=== PATIENT | female | born 1970 | race African-American/Black ===

== ENCOUNTER → 2019-03-04 | Outpatient (CLI) | payer SELFPAY ==
--- NOTE | 2019-03-04 12:20 | RAD ---
Two-view chest dated 03/04/2019. No comparison available. Clinical data indication: Shortness of breath. FINDINGS: PA and lateral views of the chest were obtained. Heart and mediastinal contours within normal limits. Lungs are clear without focal consolidation. Vascular interstitium within normal limits. No pleural effusion or pneumothorax. IMPRESSION: No acute radiographic abnormality. Electronically signed by: Eriberto Ridley MD (03/04/2019 12:17 PM) [id number]
[2019-03-04 12:27] LABS: BASO # 0.1 x10^3/uL (0.0-0.2); BASO % 1 % (0-3); EOS # 0.5 x10^3/uL (0.0-0.7); EOS % 4 % (0-3); HEMATOCRIT 35.3 % (36.0-47.0); LYMPH # 2.1 x10^3/uL (1.0-4.8); LYMPH % 17 % (24-48); MEAN CORPUSCULAR HEMOGLOBIN 25 pg (25-35); MEAN CORPUSCULAR HGB CONC 31 g/dL (31-37); MEAN CORPUSCULAR VOLUME 81 fL (79-100); MONO # 0.9 x10^3/uL (0.0-1.1); MONO % 7 % (0-9); NEUT # 8.5 x10^3uL (1.8-7.7); NEUT % 71 % (31-73); PLATELET COUNT 290 x10^3/uL (140-400); RED BLOOD COUNT 4.35 x10^6/uL (3.50-5.40); RED CELL DISTRIBUTION WIDTH 15.2 % (11.5-14.5)
== END | disposition home or self-care (01) ==
LOC: RAD 11:42
PROVIDERS: ATTEND Internal Medicine Pulmonary Disease
DX: R06.02 Shortness of breath (principal); J45.909 Unspecified asthma, uncomplicated
CPT/HCPCS: 36415; 71046; 82784; 85025

== ENCOUNTER → 2019-08-24 | Outpatient (CLI) | payer OTHER ==
--- NOTE | 2019-08-25 11:34 | SLEEP ---
DATE OF STUDY: 08/24/2019 REFERRING PHYSICIAN: Miya Johnson MD INDICATIONS: The patient is a 48-year-old, who weighs 235 pounds with a BMI of 42. The patient's [place] score was 15. A split night study was performed at [facility]. FINDINGS: During the night study, the patient spent 432 minutes in bed and slept for 392 minutes with a sleep efficiency of 91%. Sleep latency was 7 minutes with a REM latency of 150. Sleep architecture showed normal stage 1 sleep, increased stage 2 sleep, normal slow wave, and normal REM sleep. During the initial diagnostic portion of the study, the patient slept for 72 minutes. During that time, there were 4 obstructive apneas, no mixed or central apneas, and 26 hypopneas. The patient's apnea hypopnea index was 25 per hour with a supine index of 25 per hour. REM sleep was not seen during the diagnostic portion of the study. EKG monitoring revealed a mean heart rate of 83 beats per minute, no sustained arrhythmias observed. Nocturnal oximetry study revealed a mean oxygen saturation 97%. Only 2.7% of the time, oxygen saturation remained between 80% and 89%. No clinically significant PLMS observed. The patient met the criteria for CPAP initiation. It was started at 5 cm of water and titrated up to 15 cm of water. At the final pressure, the patient slept for 66 minutes. The patient had supine sleep. The patient's apnea hypopnea index was reduced to 0 per hour and oxygen saturations remained above 93%. IMPRESSION: 1. Moderate sleep apnea-hypopnea syndrome at an apnea hypopnea index of 25 per hour. Absence of REM sleep during the diagnostic portion can underestimate the severity of sleep apnea. 2. Nocturnal hypoxia secondary to obstructive sleep apnea but resolved with CPAP. 3. No clinically significant periodic limb movements. RECOMMENDATIONS: 1. CPAP at 15 cm water completely eliminated the patient's sleep apnea and should be used on a nightly basis. Follow up in 4-6 weeks to assess compliance with CPAP and to document clinical improvement. 2. Weight loss is strongly advised. 3. Avoid [employer] depressants. 4. Cautioned regarding driving until symptoms of sleep apnea resolve with the use of CPAP. 5. The patient used medium-sized nasal pillows. ADRIENNE U. CARPIO, MD DR: ELLY/isabelle JOB#: [id number] / [id number] MIYA Lindquist MD MTDD
== END | disposition home or self-care (01) ==
LOC: RT 18:56
PROVIDERS: ATTEND Internal Medicine Pulmonary Disease
DX: G47.33 Obstructive sleep apnea (adult) (pediatric) (principal)
CPT/HCPCS: 95810

== ENCOUNTER → 2020-07-16 | Outpatient (CLI) | payer OTHER ==
[2020-07-16 07:27] LABS: BASO # 0.1 x10^3/uL (0.0-0.2); BASO % 1 % (0-3); EOS # 0.3 x10^3/uL (0.0-0.7); EOS % 5 % (0-3); HEMATOCRIT 33.9 % (36.0-47.0); HEMOGLOBIN 10.8 g/dL (12.0-15.5); LYMPH # 1.8 x10^3/uL (1.0-4.8); LYMPH % 26 % (24-48); MEAN CORPUSCULAR HEMOGLOBIN 25 pg (25-35); MEAN CORPUSCULAR HGB CONC 32 g/dL (31-37); MEAN CORPUSCULAR VOLUME 77 fL (79-100); MONO # 0.6 x10^3/uL (0.0-1.1); MONO % 8 % (0-9); NEUT # 4.1 x10^3/uL (1.8-7.7); NEUT % 60 % (31-73); PLATELET COUNT 282 x10^3/uL (140-400); RED CELL DISTRIBUTION WIDTH 15.9 % (11.5-14.5); WHITE BLOOD COUNT 6.8 x10^3/uL (4.0-11.0)
== END | disposition home or self-care (01) ==
LOC: LAB 06:45
PROVIDERS: ATTEND Internal Medicine Pulmonary Disease
DX: J44.9 Chronic obstructive pulmonary disease, unspecified (principal)
CPT/HCPCS: 36415; 82785; 85025